=== PATIENT | male | born 1995 | race Asian ===

== ENCOUNTER 2017-05-26 23:56 | Emergency (ER) | payer SELFPAY ==
[~2017-05-26] VITALS: Ht 167.6 cm; Wt 83.9 kg
[2017-05-27 00:26] LABS: BILIRUBIN,URINE NEGATIVE (NEGATIVE); KETONES,URINE 1+ (NEGATIVE); LEUKOCYTE ESTERASE ,URINE NEGATIVE (NEGATIVE); NITRITE,URINE NEGATIVE (NEGATIVE); PH,URINE 5 (5-9); PROTEIN,URINE NEGATIVE (NEGATIVE); UROBILINOGEN,URINE NORMAL (NORMAL)
[2017-05-27 00:32] LABS: SQUAMOUS EPITHELIAL CELL,UR RARE /HPF; WBC,URINE RARE /HPF
[2017-05-27] MEDS ORDERED: NS IV 1000 ML 1,000 ML IV ONE (00:49)
[2017-05-27] MEDS ORDERED: KETOROLAC 30 MG/ML VIAL IVP ONE (01:00)
[2017-05-27 01:27] LABS: BASOPHILS % (AUTO) 0 % (0-10); EOSINOPHILS # (AUTO) 0.1 10^3/uL (0.0-0.3); EOSINOPHILS % (AUTO) 1 % (0-10); LYMPHOCYTES # (AUTO) 1.8 X 10^3 (1.0-4.0); LYMPHOCYTES % (AUTO) 19 % (12-44); MEAN CORPUSCULAR HEMOGLOBIN 26 PG (25-34); MEAN CORPUSCULAR HGB CONC 34 G/DL (32-36); MEAN CORPUSCULAR VOLUME 78 FL (80-99); MEAN PLATELET VOLUME 11.2 FL (7.4-10.4); MONOCYTES # (AUTO) 0.7 X 10^3 (0.0-1.0); MONOCYTES % (AUTO) 8 % (0-12); NEUTROPHILS # (AUTO) 6.8 X 10^3 (1.8-7.8); NEUTROPHILS % (AUTO) 72 % (42-75); PLATELET COUNT 203 10^3/uL (130-400); RED BLOOD COUNT 5.32 10^6/uL (4.35-5.85); RED CELL DISTRIBUTION WIDTH 12.8 % (10.0-14.5); WHITE BLOOD COUNT 9.5 10^3/uL (4.3-11.0)
[2017-05-27 01:42] LABS: ALANINE AMINOTRANSFERASE 76 U/L (0-55); ALBUMIN 4.2 GM/DL (3.2-4.5); ANION GAP 11 MMOL/L (5-14); ASPARTATE AMINO TRANSFERASE 49 U/L (5-34); BILIRUBIN,TOTAL 0.2 MG/DL (0.1-1.0); BLOOD UREA NITROGEN 11 MG/DL (7-18); BUN/CREATININE RATIO 11; CALCIUM 9.1 MG/DL (8.5-10.1); CARBON DIOXIDE 25 MMOL/L (21-32); CHLORIDE 100 MMOL/L (98-107); CREATININE SERUM 0.97 MG/DL (0.60-1.30); GFR ESTIMATED > 60; GLUCOSE 284 MG/DL (70-105); SODIUM 136 MMOL/L (135-145); TOTAL PROTEIN 7.2 GM/DL (6.4-8.2)
--- NOTE | 2017-05-27 02:09 | ED General ---
General Chief Complaint: Back Problems Stated Complaint: SIDE PAIN Nursing Triage Note: RIGHT FLANK PAIN X30 MIN Nursing Sepsis Screen: No Definite Risk Source of Information: Patient Exam Limitations: No Limitations History of Present Illness Time Seen by Provider: 00:21 Initial Comments This 22-year-old gentleman presents to the emergency room with complaints of right flank pain that started within hours of presentation to the ER. He had no complaints of fever, dysuria, hematuria, nausea, vomiting, or diarrhea. Pain was starting to dissipate by the time of my exam. He has a history of renal stones and states this pain feels similar to prior episode. Allergies and Home Medications Allergies Coded Allergies: No Known Drug Allergies (Unverified , 05/27/17) Home Medications No Active Prescriptions or Reported Meds Constitutional: no symptoms reported EENTM: no symptoms reported Respiratory: no symptoms reported Cardiovascular: no symptoms reported Gastrointestinal: see HPI Genitourinary: no symptoms reported Musculoskeletal: no symptoms reported Skin: no symptoms reported Psychiatric/Neurological: No Symptoms Reported Hematologic/Lymphatic: No Symptoms Reported Past Nypuovx-[id number]-Ijttbn Hx Patient Social History Alcohol Use: Occasionally Uses Alcohol Beverage of Choice: Cheap Liquor Recreational Drug Use: No Smoking Status: Current Everyday Smoker Type Used: Cigarettes 2nd Hand Smoke Exposure: Yes Recent Foreign Travel: No Contact w/Someone Who Travel: No Recent Infectious Disease Expo: No Recent Hopitalizations: No Immunizations Up To Date Tetanus Booster (TDap): Unknown Seasonal Allergies Seasonal Allergies: No Surgeries History of Surgeries: No Respiratory History of Respiratory Disorde: No Cardiovascular History of Cardiac Disorders: No Neurological History of Neurological Disord: No Genitourinary History of Genitourinary Disor: No Gastrointestinal History of Gastrointestinal Di: No Musculoskeletal History of Musculoskeletal Dis: No Endocrine History of Endocrine Disorders: No HEENT History of HEENT Disorders: No Cancer History of Cancer: No Psychosocial History of Psychiatric Problem: No Integumentary History of Skin or Integumenta: No Blood Transfusions History of Blood Disorders: No Physical Exam Vital Signs Vital Sign - Last 12Hours 05/27/17 00:14 Temp 97.7 Pulse 96 Resp 18 B/P (MAP) 137/90 (106) Pulse Ox 99 O2 Delivery Room Air Capillary Refill : Less Than 3 Seconds General Appearance: No Apparent Distress, WD/WN HEENT: PERRL/EOMI, Normal ENT Inspection Neck: Normal Inspection Respiratory: Lungs Clear, Normal Breath Sounds, No Accessory Muscle Use, No Respiratory Distress Cardiovascular: Regular Rate, Rhythm, No Edema, No Murmur Gastrointestinal: Normal Bowel Sounds, Non Tender, Soft Back: Normal Inspection Extremity: Normal Inspection, No Pedal Edema Neurologic/Psychiatric: Alert, Oriented x3, No Motor/Sensory Deficits, Normal Mood/Affect, custodial officer II-XII Norm as Tested Skin: Normal Color, Warm/Dry Progress/Results/Core Measures Suspected Sepsis Recent Fever Within 48 Hours: No Infection Criteria Present: None New/Unexplained Altered Menta: No Sepsis Screen: No Definite Risk Sepsis Diagnosis: SIRS Temperature:97.7 Pulse: 96 Respiratory Rate: 18 Laboratory Tests 05/27/17 01:15: White Blood Count 9.5 Blood Pressure 137 /90 Mean: 106 Laboratory Tests 05/27/17 01:15: Creatinine 0.97, Platelet Count 203, Total Bilirubin 0.2 Results/Orders Lab Results My Orders Medications Given in ED Vital Signs/I&O Capillary Refill : Less Than 3 Seconds Blood Pressure Mean: 106 Progress Note : Progress Note Symptoms were suggestive of a ureteral stone. Workup was pursued accordingly. Patient was given Toradol for pain and a liter of IV fluids. No stones were found in the ureter on CT scan. However, patient was diagnosed with new-onset diabetes. We discussed dietary management and the need for close follow-up. Patient was advised to make an appointment for outpatient management of diabetes as soon as possible and for reevaluation of his hematuria. I suspect that he had a small ureteral stone that passed as a cause of his hematuria. Diagnostic Imaging Diagonstic Imaging: CT Plain Films/CT/US/NM/MRI: abdomen, pelvis Comments CT abdomen and pelvis viewed by me. Stat rad report reviewed. There is suggestion of tiny renal stones within the kidney. No hydronephrosis, hydroureter, or ureteral stones. Departure Impression Impression: Primary Impression: Right flank pain Additional Impressions: Hematuria Qualified Codes: R31.9 - Hematuria, unspecified Nephrolithiasis New onset type 2 diabetes mellitus Disposition: HOME, SELF-CARE Condition: Improved Departure-Patient Inst. Decision time for Depature: 02:00 Referrals: NO,LOCAL PHYSICIAN (PCP) Primary Care Physician Patient Instructions: Diabetes Diet , Diabetes Type 2 (DC), Kidney Stones (DC) Add. Discharge Instructions: I suspect you had a small kidney stone that passed. No kidney stone was seen in your ureter. The blood in your urine was likely due to a kidney stone that passed, but you should have your urine rechecked at a follow-up appointment to make sure the blood clears. Drink plenty of clear liquids. For your new diabetes, please consume a low carbohydrate and low sugar diet. Eat plenty of vegetables, and lean meats. Make an appointment at the [facility] as soon as possible to start monitoring for diabetes. If possible, obtain a glucometer and start checking her blood sugars at least twice a day, once fasting in the morning and once 2 hours after a meal. Record these blood sugars and bring them to your follow-up appointment. All discharge instructions reviewed with patient and/or family. Voiced understanding. Scripts No Active Prescriptions or Reported Meds Copy Copies To 1: JACOBO REAVES MD, JOSHUA T MD May 27, 2017 02:09
[2017-05-27 02:21] VITALS: BP 114/98
--- NOTE | 2017-05-27 06:35 | Diagnostic Imaging Report ---
PROCEDURE: CT urinary tract, rule out kidney stone. TECHNIQUE: Multiple contiguous axial images were obtained through the abdomen and pelvis without the use of intravenous contrast. INDICATION: Right flank pain. FINDINGS: The lung bases appear clear. The liver, the gallbladder, the spleen, the pancreas, and the adrenal glands appear unremarkable for an unenhanced exam. The appendix is normal. There is no bowel obstruction. No significant free fluid or fluid collection in the abdomen or pelvis. There is urinary bladder wall thickening which could correlate with cystitis. In the kidneys there are 1 mm calcifications suggested in the calyxes which probably represent nonobstructive stones. No hydronephrosis. No ureteric or bladder stones. The osseous structures appear grossly unremarkable. IMPRESSION: 1. Suggestion of nonobstructive kidney stones in the minor calyces up to 1 mm in size. No hydronephrosis. 2. Urinary bladder wall thickening. Correlate for possible associated cystitis. Dictated by: Dictated on workstation # [id number]
== END 2017-05-27 02:14 | disposition home or self-care (01) ==
LOC: ER 23:59
DX: N20.0 Calculus of kidney (principal); E11.9 Type 2 diabetes mellitus without complications; F17.210 Nicotine dependence, cigarettes, uncomplicated
CPT/HCPCS: 36415; 74176; 80053; 81000; 83036; 85025